=== PATIENT | male | born 1980 | race African-American/Black ===

== ENCOUNTER 2020-02-21 20:08 | Emergency (ER) | payer MEDICAID, OTHER ==
[~2020-02-21] VITALS: Ht 193 cm; Wt 100.0 kg
[2020-02-21 21:32] VITALS: BP 133/94
== END 2020-02-21 21:32 | disposition home or self-care (01) ==
LOC: ER 20:08
DX: S09.8XXA Other specified injuries of head, initial encounter (principal); X58.XXXA Exposure to other specified factors, initial encounter; Y93.89 Activity, other specified; Y92.89 Other specified places as the place of occurrence of the external cause; Y99.8 Other external cause status; F17.290 Nicotine dependence, other tobacco product, uncomplicated
CPT/HCPCS: 93005; 99284